=== PATIENT | female | born 1945 | race Caucasian/White ===

== ENCOUNTER → 2017-07-04 | Outpatient (CLI) | payer OTHER ==
[2017-06-23 11:00] VITALS: BP 108/50
[~2017-07-04] MED LIST: APIX2.5T PO; OXYC-323 PO; POLY17PO3 PO; SENN-22 PO
--- NOTE | 2017-07-04 14:16 | RAD ---
Right hip, 2 views, 07/04/2017: History: Postop follow-up An internal fixation device is in place traversing the intertrochanteric proximal femoral fracture. The major fracture fragments are in good position for healing. The tips of the 2 pins in the femoral head lie well beneath the articular cortex. The femoral head is seated within the acetabulum. The right hip joint space is well-preserved. The bony structures are demineralized. IMPRESSION: Satisfactory alignment of the internally fixed right hip fracture.
== END | disposition home or self-care (01) ==
LOC: RAD 10:06
PROVIDERS: ATTEND Nurse Practitioner Gerontology
DX: S72.001D Fracture of unspecified part of neck of right femur, subsequent encounter for closed fracture with routine healing (principal)
CPT/HCPCS: 73502